=== PATIENT | female | born 1955 | race Caucasian/White ===

== ENCOUNTER 2017-02-20 17:17 | Emergency (ER) | payer OTHER ==
[~2017-02-20] VITALS: Ht 152.4 cm; Wt 54.4 kg
[2017-02-20 18:58] LABS: BASOPHIL % 0.4 % (0-2); PLATELET COUNT 176 x10^3mcL (130-400)
[2017-02-20 19:05] LABS: CALCIUM 9.2 mg/dL (8.5-10.1); CARBON DIOXIDE 22.2 mmol/L (21-32); CHLORIDE SERUM 103 mmol/L (98-107); CREATININE SERUM 0.7 mg/dL (0.6-1.0); GFR1 > 60 mL/min; GLUCOSE SERUM 289 mg/dL (74-106); POTASSIUM SERUM 3.8 mmol/L (3.5-5.1); SODIUM SERUM 137 mmol/L (136-145)
[2017-02-20 19:10] LABS: ALBUMIN 3.5 g/dL (3.4-5.0); ALKALINE PHOSPHATASE 105 U/L (46-116); ALT/SGPT 28 U/L (14-59); AST/SGOT 13 U/L (15-37); BILIRUBIN TOTAL 0.4 mg/dL (0.20-1.00); TOTAL PROTEIN, SERUM 6.7 g/dL (6.4-8.2)
[2017-02-20 19:15] LABS: microscopic required? NO
[2017-02-20 19:30] LABS: UA SPECIFIC GRAVITY <=1.005 (1.005-1.035); urine erythrocyte NEGATIVE (NEGATIVE)
[2017-02-20 19:56] VITALS: BP 150/74
== END 2017-02-20 19:56 | disposition home or self-care (01) ==
LOC: ED 17:17
PROVIDERS: Emergency Medicine
DX: E11.9 Type 2 diabetes mellitus without complications (principal); Z79.84 Long term (current) use of oral hypoglycemic drugs; Z79.4 Long term (current) use of insulin; Z79.899 Other long term (current) drug therapy
CPT/HCPCS: J7030; J8597

== ENCOUNTER 2020-05-20 10:26 | Emergency (ER) | payer OTHER ==
[~2020-05-20] VITALS: Ht 152.4 cm; Wt 58.1 kg
[2020-05-20 10:41] VITALS: Ht 152.4 cm; Wt 58.1 kg
[2020-05-20 12:34] LABS: CALCIUM 8.5 mg/dL (8.5-10.1); CARBON DIOXIDE 25.4 mmol/L (21-32); CHLORIDE SERUM 102 mmol/L (98-107); CREATININE SERUM 0.7 mg/dL (0.6-1.0); GFR1 > 60 mL/min; GLUCOSE SERUM 89 mg/dL (74-106); POTASSIUM SERUM 3.7 mmol/L (3.5-5.1); SODIUM SERUM 135 mmol/L (136-145)
[2020-05-20 12:42] LABS: ALBUMIN 3.7 g/dL (3.4-5.0); ALKALINE PHOSPHATASE 66 U/L (46-116); ALT/SGPT 26 U/L (14-59); AMYLASE 30 U/L (25-115); AST/SGOT 17 U/L (15-37); LIPASE 108 IU/L (73-393); TOTAL PROTEIN, SERUM 6.9 g/dL (6.4-8.2)
[2020-05-20 13:47] LABS: BASOPHIL % 0.3 % (0-2); PLATELET COUNT 198 x10^3mcL (130-400); RED CELL DISTRIBUTION WIDTH 13.5 % (11.5-14.5)
[2020-05-20 15:52] VITALS: BP 144/51
== END 2020-05-20 15:52 | disposition home or self-care (01) ==
LOC: ED 10:26
PROVIDERS: Emergency Medicine
DX: K59.00 Constipation, unspecified (principal); E78.5 Hyperlipidemia, unspecified; E11.9 Type 2 diabetes mellitus without complications
CPT/HCPCS: J1885